=== PATIENT | female | born 1985 | race Caucasian/White ===

== ENCOUNTER 2017-12-16 02:24 | Emergency (ER) | payer OTHER, MEDICARE ==
[~2017-12-16] VITALS: Ht 175.3 cm; Wt 103.4 kg
[2017-12-16] MEDS ORDERED: PROAIR HFA8.5 GM INH (03:34)
[2017-12-16] MEDS ORDERED: PREDNISONE20 M1 PO (03:34)
[2017-12-16] MEDS ORDERED: ROBITUSSIN COU237 M1 PO (03:34)
[2017-12-16] MEDS ORDERED: ZITHROMAX250 M2 PO (03:34)
[2017-12-16] MEDS ORDERED: IBUPROFEN600 M1 PO (03:34)
--- NOTE | 2017-12-16 03:35 | ED INFLUENZA/URI COMPLAINT ---
History of Present Illness General Chief Complaint: General Adult Stated Complaint: "CANT SLEEP, CHEST CONGESTION, SORE THROAT" PERPT Source: patient, old records Exam Limitations: no limitations Vital Signs & Intake/Output Vital Signs & Intake/Output Vital Signs Date Time Temp Pulse Resp B/P B/P Pulse O2 O2 Flow FiO2 Mean Ox Delivery Rate 12/16 0249 98.6 86 20 122/60 98 Room Air Allergies Coded Allergies: Penicillins (PEDIATRIC WHEN DX 12/16/17) Triage Note: TRIAGE: PATIENT TO ER FROM HOME REPORTING SHARP PAIN TO CHEST ONLY W/ COUGHING X 2 DAYS, "SO BAD THAT NOW I CAN'T SLEEP." COUGH IS PRODUCTIVE, "PROBABLY YELLOW." +SORE THROAT SINCE ONSET OF SX. +NASAL CONGESTION/ SNEEZING/ "RUNNY NOSE." Triage Nurses Notes Reviewed? yes Onset: 2 days Duration: day(s):, constant, continues in ED Timing: recent history Severity: moderate Prior Episodes/Possible Cause: illness exposure No Modifying Factors: none Associated Symptoms: chest pain, cough, muscle aches, nasal congestion, nasal drainage, sinus infection, sore throat LMP (ages 10-50): unknown : No Patient currently breastfeeds: No HPI: 2 days prior to admission the patient complains of nasal congestion sinus pressure chest tightness sore throat body aches unable to sleep. Her spouse is ill with similar symptoms. She denies fever chills nausea vomiting diarrhea abdominal pain headache dysuria rash bleeding. Past History Travel History Traveled to [place] past 21 day No Medical History Any Pertinent Medical History? 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 No Review of Systems Review of Systems Constitutional: Reports: see HPI, malaise. EENTM: Reports: see HPI, nasal congestion, throat pain. Respiratory: Reports: see HPI, cough, sputum production. Cardiovascular: Reports: see HPI, chest pain. GI: Reports: no symptoms. Genitourinary: Reports: no symptoms. Musculoskeletal: Reports: see HPI, muscle pain. Skin: Reports: no symptoms. Neurological/Psychological: Reports: no symptoms. Hematologic/Endocrine: Reports: no symptoms. Immunologic/Allergic: Reports: no symptoms. All Other Systems: Reviewed and Negative Physical Exam Physical Exam General Appearance: well developed/nourished, alert, awake, anxious, moderate distress, obese Head: atraumatic, normal appearance, tenderness (Sinus) Eyes: Bilateral: normal appearance, PERRL, EOMI. Ears, Nose, Throat: moist mucous membrane, Tympanic normal, nasal congestion, nasal drainage, pharyngeal erythema Neck: normal inspection, supple, full range of motion, trachea midline, lymphadenopathy (R), lymphadenopathy (L) Respiratory: normal breath sounds, chest non-tender, no respiratory distress, quiet respiration, lungs clear Cardiovascular: regular rate/rhythm, normal peripheral pulses, norml femoral pulses equa Peripheral Pulses: 4+ carotid (R), 4+ carotid (L) Gastrointestinal: normal bowel sounds, soft, non-tender, no organomegaly Back: normal inspection, normal range of motion Extremities: normal inspection, normal capillary refill, normal range of motion, no edema Neurologic/Psych: no motor/sensory deficits, awake, alert, oriented x 3, normal gait, normal mood/affect, 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 Skin: intact, warm/dry Lymphatic: adenopathy Core Measures Sepsis Present: No Sepsis Focused Exam Completed? No Progress Differential Diagnosis: influenza, pharyngitis, sinusitis Plan of Care: Current Medications Sig/Pamella Start time Last Medication Dose Stop Time Status Admin Prednisone 60 MG ONCE ONE 12/16 329 UNVr 12/16 330 Initial ED EKG: none Departure Departure Time of Disposition: 330 Disposition: HOME OR SELF CARE Condition: Stable Clinical Impression Primary Impression: Sinusitis Secondary Impressions: Bronchitis Referrals: Patient Has No Primary Care Dr (PCP/Family) Departure Forms: Customer Survey General Discharge Information Prescriptions: Current Visit Scripts Azithromycin (Zithromax) 1 DP PO AD #1 DP Start tomorrow Prednisone 1 TAB PO BID #10 TAB Albuterol Sulfate (Proair Hfa) 2 PUF INH Q4-6 PRN PRN bronchitis #1 INHAL Guaifenesin/Dextromethorphan (Robitussin Cough-Chest Dm Liq) 5-10 ML PO Q6P PRN cough #240 ML Ibuprofen 1 TAB PO Q6P PRN pain, fever #30 TAB with food
[2017-12-16 04:06] VITALS: BP 118/78
== END 2017-12-16 04:07 ==
LOC: ERH 02:24
DX: J40 Bronchitis, not specified as acute or chronic (principal); J32.9 Chronic sinusitis, unspecified; R07.89 Other chest pain; Z87.891 Personal history of nicotine dependence
CPT/HCPCS: 1263